=== PATIENT | female | born 1990 | race Caucasian/White ===

== ENCOUNTER 2016-11-17 17:54 | Emergency (ER) | payer OTHER ==
[~2016-11-17] VITALS: Ht 162.6 cm; Wt 50.8 kg
[~2016-11-17 17:54] MED LIST: MINASTRIN 24 FE1 KIT PO; ZOFRAN ODT8 MG PO; ZOFRAN4 M1 PO
[2016-11-17 18:08] VITALS: BP 128/82
[2016-11-17] MEDS ORDERED: SULFAMETHOXAZO1 EAC1 PO (19:20)
[2016-11-17] MEDS ORDERED: PAZEO2.5 ML OP (19:21)
[2016-11-17] MEDS ORDERED: SEASONIQUE 0.11 EACH PO (19:21)
[2016-11-17] MEDS ORDERED: BACTRIM DS TAB1 EACH PO (19:30)
--- NOTE | 2016-11-17 19:30 | ED GI/GU/ABDOMINAL COMPLAINT ---
History of Present Illness General Chief Complaint: General Adult Stated Complaint: SIB WALK IN TO R/O KIDNEY INFECTION Source: patient Exam Limitations: no limitations Vital Signs & Intake/Output Vital Signs & Intake/Output Vital Signs Date Time Temp Pulse Resp B/P Pulse O2 O2 Flow FiO2 Ox Delivery Rate 11/17 1808 97.9 86 18 128/82 98 Room Air Allergies Coded Allergies: NO KNOWN ALLERGIES (09/06/11) Reconcile Medications L-Norgest/E.estradion-E.estrad (Seasonique 0.15-0.03-0.01 Tab) 0.15 MG-30 MCG ( 84)/10 MCG (7) [id number] 1 TAB PO DAILY CONTROL (Reported) Olopatadine HCl (Pazeo) 0.7 % DROPS 1 DROP OP PRN ALLERGIES - BOTH EYES ( Reported) Sulfamethoxazole/Trimethoprim (Sulfamethoxazole-Tmp Ds Tablet) 800 MG-160 MG TABLET 1 TAB PO BID UTI (Reported) Sulfamethoxazole/Trimethoprim (Bactrim Ds Tablet) 800 MG-160 MG TABLET 1 TAB PO BID uti Triage Note: PT STATES THAT SHE WAS STARTED ON ABT FOR UTI AND STARTED ON BACTRIM, HAS ONE PILL LEFT AND SHE IS STILL HAVING URGENCY , PAIN AND L FLANK PAIN Triage Nurses Notes Reviewed? yes ? n Is pt currently ? No Onset: Abrupt Duration: day(s): (4), constant, continues in ED Timing: recent history No Modifying Factors: none HPI: 26-year-old female comes into emergency room for further evaluation of urinary tract symptoms. Patient reports that when she left [place] this past Wednesday she started to experience some increased frequency burning and urgency. Patient called her GLAZING DEPARTMENT SUPERVISOR doctor who gave her a 3 day supply of Bactrim. She reports the symptoms have improved. She denies any fever or vomiting. Patient went to a [facility] to get more days on antibiotics as she was still having some mild symptoms and they sent her to the hospital for further evaluation of pyelonephritis. (AZUL GONZALEZ) Past History Travel History Traveled to [place] past 21 day No Medical History Any Pertinent Medical History? see below for history Neurological: NONE EENT: NONE Cardiovascular: NONE Respiratory: NONE Gastrointestinal: NONE Hepatic: NONE Renal: NONE Musculoskeletal: NONE Psychiatric: NONE Endocrine: NONE Blood Disorders: NONE Cancer(s): NONE DENTURES LAB TECHNICIAN/Reproductive: NONE Pneumonia Vaccine: 07/25/14 Influenza Vaccine: 07/25/14 Surgical History Surgical History: non-contributory Psychosocial History What is your primary language Latvian Tobacco Use: Never used ETOH Use: denies use Illicit Drug Use: denies illicit drug use Family History Hx Contributory? No (AZUL GONZALEZ) Review of Systems Review of Systems Constitutional: Reports: no symptoms. EENTM: Reports: no symptoms. Respiratory: Reports: no symptoms. Cardiovascular: Reports: no symptoms. GI: Reports: no symptoms. Genitourinary: Reports: see HPI. Musculoskeletal: Reports: no symptoms. Skin: Reports: no symptoms. Neurological/Psychological: Reports: no symptoms. Hematologic/Endocrine: Reports: no symptoms. Immunologic/Allergic: Reports: no symptoms. All Other Systems: Reviewed and Negative (AZUL GONZALEZ) Physical Exam Physical Exam General Appearance: well developed/nourished, no apparent distress, alert, awake Head: atraumatic, normal appearance Eyes: Bilateral: normal appearance. Ears, Nose, Throat, Mouth: hearing grossly normal, moist mucous membrane Neck: normal inspection Respiratory: normal breath sounds, no respiratory distress Cardiovascular: regular rate/rhythm Gastrointestinal: normal bowel sounds, soft, non-tender Back: no CVA tenderness Extremities: normal range of motion Neurologic/Psych: awake, alert, oriented x 3, normal gait, normal mood/affect Skin: intact, normal color Core Measures ACS in differential dx? No Severe Sepsis Present: No Septic Shock Present: No (AZUL GONZALEZ) Progress Differential Diagnosis: appendicitis, bowel obstruction, intrauterine , kidney stone, ovarian cyst, ovarian torsion, PID/cervicitis, peptic ulcer, PUD/ GERD, threatened AB, UTI/pyelo Plan of Care: Orders Procedure Date/time Status Add-on Test (ER Only) 11/17 1927 Active Add-on Test (ER Only) 11/17 1917 Active CULTURE,URINE 11/17 1811 Active URINE 11/17 1811 Complete URINALYSIS 11/17 1805 Complete Laboratory Tests 11/17/161811: Urine Color STRAW, Urine Clarity CLEAR, Urine pH 6.0, Ur Specific [place] 1.015, Urine Protein NEG, Urine Ketones NEG, Urine Nitrite NEG, Urine Bilirubin NEG, Urine Urobilinogen 0.2, Ur Leukocyte Esterase NEG, Ur Microscopic EXAM NOT REQUIRED, Urine Hemoglobin NEG, Urine Glucose NEG, Urine Test NEGATIVE Microbiology 11/17 1811 URINE ROUT: Urine Culture - RECD Initial ED EKG: none (AZUL GONZALEZ) Departure Departure Disposition: HOME OR SELF CARE Condition: Stable Clinical Impression Primary Impression: UTI (urinary tract infection) Referrals: BRITTNEY SARAH MD (PCP/Family) Additional Instructions: Resume Bactrim for another 4 days. Return if any fever, vomiting, back pain or any other concerns worsening symptoms. Please go over all results of today's visit with your primary care doctor. Contact your primary care doctor to let them know you were here in the emergency room. There may be nonspecific findings which may not be related to your visit today here in the emergency room but may require further evaluation and chronic monitoring by your primary care doctor. If you had a laceration today the chance of foreign body always remains. You should follow-up with your primary care doctor for recheck in 3-5 days for a wound check. If you had an x-ray done there is a chance that a fracture could have been missed on initial read and you should follow-up with your primary care doctor for repeat x-rays if symptoms persist. If your blood pressure was elevated here in the emergency room please have rechecked by her primary care doctor within the next 48 hours by your primary care doctor. If you were prescribed a narcotic here in the emergency room or any type of controlled substances you're not allowed to drive while taking this medication or operate any type of heavy machinery. Narcotics can make you feel lightheaded dizziness nausea and can cause constipation. You may need to molded goods spot picker a stool softener. Thank you for choosing [facility] emergency room. Please return to the emergency room immediately if you have any other concerns worsening of symptoms. Departure Forms: Customer Survey General Discharge Information Prescriptions: Current Visit Scripts Sulfamethoxazole/Trimethoprim (Bactrim Ds Tablet) 1 TAB PO BID #8 TAB Comments 11/17/2016 7:36:58 PM Patient clinically looks well. Nontoxic-appearing. Afebrile. No CVA tenderness. No vomiting. No suspicion for polynephritis. Patient clinically looks well. At this time patient will be resumed on oral Bactrim. No need for ciprofloxacin at this time. Patient just needs to finish a prolonged course of antibiotics. Return if any other concerns. Follow-up with ceramic design engineer. (AZUL GONZALEZ) PA/BELT LOOP MACHINE OPERATOR Co-Sign Statement Statement: ED Attending supervision documentation- [] I saw and evaluated the patient. I have also reviewed all the pertinent lab results and diagnostic results. I agree with the findings and the plan of care as documented in the PA's/BELT LOOP MACHINE OPERATOR's documentation. [X] I have reviewed the ED Record and agree with the PA's/BELT LOOP MACHINE OPERATOR's documentation. [] Additions or exceptions (if any) to the PAs/BELT LOOP MACHINE OPERATOR's note and plan are summarized below: [] (KATERINA HUYNH,BALA Gage)
== END 2016-11-17 19:41 ==
LOC: ERH 17:54
DX: N39.0 Urinary tract infection, site not specified (principal)
CPT/HCPCS: 81003; 81025; 87086